=== PATIENT | female | born 1945 | race Caucasian/White ===

== ENCOUNTER → 2022-01-26 | Outpatient (CLI) | payer MEDICARE | END | disposition home or self-care (01) | LOC: SHCH 15:01 | PROVIDERS: ATTEND Internal Medicine Cardiovascular Disease | DX: I35.1 Nonrheumatic aortic (valve) insufficiency (principal); I10 Essential (primary) hypertension; R06.00 Dyspnea, unspecified; E78.5 Hyperlipidemia, unspecified | CPT/HCPCS: 93306 ==

== ENCOUNTER → 2022-01-28 | Outpatient (CLI) | payer OTHER | END | disposition home or self-care (01) | LOC: RAH 12:55 → EDUNIT# 13:00 | PROVIDERS: ATTEND Internal Medicine Cardiovascular Disease | DX: Z13.6 Encounter for screening for cardiovascular disorders (principal); I51.5 Myocardial degeneration | CPT/HCPCS: 75571 ==

== ENCOUNTER → 2023-08-17 | Outpatient (CLI) | payer MEDICARE | END | disposition home or self-care (01) | LOC: RAH 13:09 | PROVIDERS: ATTEND Family Medicine | DX: N28.1 Cyst of kidney, acquired (principal); I12.9 Hypertensive chronic kidney disease with stage 1 through stage 4 chronic kidney disease, or unspecified chronic kidney disease; N18.32 Chronic kidney disease, stage 3b; R80.9 Proteinuria, unspecified | CPT/HCPCS: 76770 ==

== ENCOUNTER → 2024-09-25 | Outpatient (CLI) | payer MEDICARE ==
--- NOTE | 2024-09-25 16:17 | HMCIMG ---
Exam Type: MR SHOULDER RIGHT WO Clinical Information: PAIN Comparison: None Technique: The examination is done with sagittal T1 and inversion recovery sequences, axial GRE sequence and coronal inversion recovery, proton density and T2 weighted [id number] sequences. FINDINGS: There is a full thickness tear of the rotator cuff tendon supraspinatus component without retraction. The rest of the rotator cuff tendon structures are preserved. The acromioclavicular joint is intact. The coracoclavicular and coracohumeral ligaments are intact. The biceps anchor is well seen, without significant tears. The biceps tendon runs in the bicipital groove without significant high signal intensity to suggest sprain. No displacement is seen from the groove itself. The structures of the labrum are intact; specifically, there is no evidence of SLAP tear. No significant abnormalities of the posterior, inferior, or inferior labral structures are seen either. No paralabral cysts are seen. The superior, middle, and inferior glenohumeral ligaments are intact. Glenohumeral joint cartilage is preserved. There is no evidence of chondromalacia. No loose intra-articular chondroid bodies are identified. The osseous structures of the shoulder joint to include the visualized segments of humeral head, neck, and shaft as well as the glenoid bone itself, the acromion, the coracoid, portions of the scapula and the distal portion of the clavicle are intact. The supraglenoid notch is clear without evidence of space occupying lesions or tumor. The structures of the joint capsule are preserved. The limited examination of the deltoid and the limited visualized portions of the pectoralis major are intact. IMPRESSION: 1. ROTATOR CUFF TENDON TEAR.
--- NOTE | 2024-09-25 16:22 | HMCIMG ---
MRI OF THE CERVICAL SPINE WITHOUT GADOLINIUM Clinical Information: Comparison: Technique: Sagittal T1 and T2 FSE, Sagittal STIR and Sagittal proton density images were completed through the cervical spine. Axial T1, T2 and proton density images were also acquired. FINDINGS: Examination shows adequate alignment of the vertebral bodies of the cervical spine. There are diffuse spondylitic changes of the cervical spine. No fractures or dislocations are identified. Vertebral body height and disc height is preserved at all levels. The bone marrow signal is normal for age. The spinal canal contents are preserved. The paraspinal muscles and other tissues show no significant abnormalities. Evaluation of the cervical spine by level: C1-C2: There is no spinal canal stenosis. No disc protrusion or extrusion is noted. There is no neural foraminal stenosis, impingement, or narrowing. C2-C3: There is no spinal canal stenosis. No disc protrusion or extrusion is noted. There is no neural foraminal stenosis, impingement, or narrowing. C3-C4: There is no spinal canal stenosis. No disc protrusion or extrusion is noted. There is no neural foraminal stenosis, impingement, or narrowing. C4-C5: There is a central zone disc protrusion causing spinal canal stenosis. No nerve root impingement seen. C5-C6: There is a central zone disc protrusion causing spinal canal stenosis. No nerve root impingement seen. C6-C7: There is a central zone disc protrusion causing spinal canal stenosis. No nerve root impingement seen. C7-T1: There is no spinal canal stenosis. No disc protrusion or extrusion is noted. There is no neural foraminal stenosis, impingement, or narrowing. Impression: Multilevel disc protrusions, without impingement.
== END | disposition home or self-care (01) ==
LOC: RAH 14:35
PROVIDERS: ATTEND Family Medicine
DX: M75.121 Complete rotator cuff tear or rupture of right shoulder, not specified as traumatic (principal); M47.22 Other spondylosis with radiculopathy, cervical region; M50.123 Cervical disc disorder at C6-C7 level with radiculopathy; M50.122 Cervical disc disorder at C5-C6 level with radiculopathy; M50.121 Cervical disc disorder at C4-C5 level with radiculopathy; M48.02 Spinal stenosis, cervical region; M25.511 Pain in right shoulder
CPT/HCPCS: 72141; 73221

== ENCOUNTER → 2024-11-27 | Outpatient (CLI) | payer MEDICARE ==
[~2024-11-27] MED LIST: ALBUHFA IH; ASPI-1005 PO; ATEN1TAB3 PO; ATOR10TA69 PO; BENA40TA92 PO; CINN1CAP PO; CLOB50SO2 TP; CRAN1CAP PO; CYAN1TAB44 PO; FLUC150T48 PO; GUAI600T50 PO; LEVO750T68 PO; MULT-1265 PO; PANT40TA54 PO; PARO10TA71 PO; UBID100C10 PO
[2024-11-27] MEDS: REGADENOSON 0.4 MG/5 ML PF SYG IVP ONE (11:04)
--- NOTE | 2024-11-27 15:25 | HMCSR ---
APPROVED REPORT Height: 5 ft 2in Weight: 155 lbs TEST INDICATIONS Ischemic Cardiomyopathy The imaging protocol used to acquire images was Rest Tc-99m/stress Tc-99m 1 day Consent: The procedure was explained and understood by the patient. Informerd consent was witnessed Kate Jenkins RN First, low dose rest was performed then high dose stress. RESTING DATA: The resting ekg shows: NSR Rest SPECT myocardial perfusion imaging was performed in supine position minutes following the intra venous injection of 11 mCi of Tc-99 Sestamibi. Time of rest injection: 10:55: Date: 11/27/2024 PHARMACOLOGIC STRESS: Pharmacologic stress test was performed by injecting regadenoson 0.4 mg IV push followed by the intra venous injection of 30 mCi of Tc-99 Sestamibi. Time of stress injection: 12:26: Date: 11/27/2024 Heart Rate at time of stress injection: 65 bpm. Gated Stress SPECT was performed 60 minutes after stress injection. The images were gated to evaluate regional wall motion and calculate left ventricular ejection fracti on. STRESS DETAILS Reason for Termination: Infusion complete Stress Symptoms: Chest Pressure Max HR Achieved: 85 bpm % of APMHR Achieved: 71 Max Blood Pressure: 145/52 mmHg Stress ECG: NSR Conclusion No ischemia No infarct LV ejection fraction 395 Normal LV size at rest and stress No increased lung uptake Normal LV size at rest and stress
== END | disposition home or self-care (01) ==
LOC: RAH 10:37
PROVIDERS: ATTEND Internal Medicine Cardiovascular Disease
DX: I25.5 Ischemic cardiomyopathy (principal); I25.10 Atherosclerotic heart disease of native coronary artery without angina pectoris
CPT/HCPCS: 78452; 93017; J2785; A9500 ×2

== ENCOUNTER → 2025-03-27 | Outpatient (CLI) | payer MEDICARE ==
[~2025-03-27] MED LIST changes: -UBID100C10 PO; +UBID100C51 PO
--- NOTE | 2025-03-27 12:21 | HMCIMG ---
DOUBLE CONTRAST UPPER GI SERIES: Clinical history rule out obstruction of duodenum Finding: The study was performed using provocative maneuvers After swallowing effervescent crystal and thick barium, there is no definite intrinsic or extrinsic lesion seen in the esophagus. There is mild esophageal reflux with no evidence of hiatal hernia. The stomach is normal in size, shape, and configuration. The rugal folds appear to be normal. The duodenal bulb, duodenal sweep, and upper jejunum appear to be normal. There are multiple diverticulum seen in the duodenum and proximal jejunum total of 8 identified. There are surgical clips in the right upper quadrant from prior cholecystectomy. There are also multiple surgical clips in the breast region from prior surgery. Fluoroscopy time: 0.7 minutes. IMPRESSION: Mild grade 1 esophageal reflux Multiple diverticula seen mostly in the duodenum and jejunum. Otherwise NORMAL DOUBLE CONTRAST UPPER GI SERIES.
== END | disposition home or self-care (01) ==
LOC: RAH 09:42
PROVIDERS: ATTEND Internal Medicine Gastroenterology
DX: K21.9 Gastro-esophageal reflux disease without esophagitis (principal); K31.5 Obstruction of duodenum; K57.10 Diverticulosis of small intestine without perforation or abscess without bleeding
CPT/HCPCS: 74240

== ENCOUNTER → 2025-04-01 | Outpatient (CLI) | payer MEDICARE ==
[~2025-04-01] MED LIST changes: -ALBUHFA IH; -ASPI-1005 PO; -ATEN1TAB3 PO; -ATOR10TA69 PO; -BENA40TA92 PO; -CINN1CAP PO; -CLOB50SO2 TP; -CRAN1CAP PO; -CYAN1TAB44 PO; -FLUC150T48 PO; -GUAI600T50 PO; +IOHEXOL 350 MG/ML 100ML INFUS..BTL IV ONE; -LEVO750T68 PO; -MULT-1265 PO; -PANT40TA54 PO; -PARO10TA71 PO; -UBID100C51 PO
--- NOTE | 2025-04-01 22:30 | HMCIMG ---
EXAMINATION: CT Abdomen and Pelvis With and Without Contrast CLINICAL INDICATION: Melena. TECHNIQUE: CT of the abdomen and pelvis was performed with and without intravenous contrast, including axial and multiplanar reconstructions. Delayed urographic phase images were obtained. COMPARISON: Prior CT scan of the abdomen and pelvis without contrast dated October 24, 2024. RADIATION DOSE: CTDIvol: 28.5 mGy DLP: 1612.80 mGycm Contrast dose: 100 mL iodinated intravenous contrast administered FINDINGS: Liver: Unremarkable in size, contour, and attenuation. No focal lesions. Gallbladder: Surgically absent. Common Bile Duct: Mildly prominent measuring up to 1 cm with smooth distal tapering. No intraductal hyperdense calculus is identified. Pancreas: Unremarkable in size, contour, and attenuation. Spleen: Unremarkable. No focal lesions identified. Adrenal Glands: Bilateral adrenal glands are unremarkable. Kidneys: The left kidney is atrophic with slight cortical scarring in the interpolar lateral region. Bilateral renal cysts are present, endophytic and exophytic, the largest being a 3 cm parapelvic cyst in the left kidney. No renal or ureteric calculi or hydronephrosis. Ureters: Both ureters are unremarkable. Delayed urographic phase demonstrates symmetric normal contrast excretion without hydroureteronephrosis. Bladder: Unremarkable. Appendix: Unremarkable (series 2, image 58/104). Gastrointestinal Tract: Scattered colonic diverticula without diverticulitis. A diverticulum arises from the medial wall of the second part of the duodenum measuring 3 cm containing an air-fluid level. Pelvis: Post-hysterectomy status. Lungs (visualized bases): Bibasilar streaky atelectasis. Right middle lobe solid nodule measuring 6 mm, stable since prior examination. Heart and Great Vessels: Minimal aortic valve annulus calcification. Spine: Grade I anterolisthesis of L3 over L4 without spondylolysis. Degenerative changes present. IMPRESSION: 1. Stable colonic diverticulosis, without evidence of diverticulitis. No abnormal colonic wall thickening. 2. Left renal atrophy with slight cortical scarring and bilateral renal cysts, largest 3 cm parapelvic cyst in the left kidney. No calculi or hydronephrosis. 3. Other stable chronic and postsurgical findings,, as described in the body of the report. All findings are stable with no interval changes compared to the prior CT of October 24, 2024. /Eastern
== END | disposition home or self-care (01) ==
LOC: RAH 08:06
PROVIDERS: ATTEND Internal Medicine Gastroenterology
DX: K57.30 Diverticulosis of large intestine without perforation or abscess without bleeding (principal); N28.1 Cyst of kidney, acquired; J98.11 Atelectasis; J98.4 Other disorders of lung; M47.817 Spondylosis without myelopathy or radiculopathy, lumbosacral region; M43.17 Spondylolisthesis, lumbosacral region; K92.1 Melena; R19.4 Change in bowel habit; Z90.710 Acquired absence of both cervix and uterus; Z90.49 Acquired absence of other specified parts of digestive tract
CPT/HCPCS: 74178; Q9967